=== PATIENT | male | born 1995 | race Caucasian/White ===

== ENCOUNTER 2016-11-22 04:31 | Emergency (ER) | payer BC ==
[2016-11-22] MEDS ORDERED: IV VANCOMYCIN PER PHARMACY 1 EACH MISC MISCELLANE PRN (05:14)
--- NOTE | 2016-11-22 05:26 | ED ---
Skin/Abscess/FB HPI - General Chief complaint: Skin/Abscess/Foreign Body Stated complaint: arm abcess-left Time Seen by Provider: 11/22/16 04:43 Source: patient Mode of arrival: ambulatory Limitations: no limitations - History of Present Illness Initial comments: This patient is a 21-year-old man who presents to be evaluated for an abscess at the left antecubital fossa. The patient states that he had noticed redness and swelling developing over the both course a week. Starting about 2 days ago he had some pus draining from it. He states that he got a large amount of pus out of it the first day. He did drain a small amount of pus yesterday. He states he was not able to express any pus today. The patient did have a tattoo to the left forearm about nearly 2 weeks ago. MD complaint: abscess/boil Onset/Timin -: week(s) Tetanus Up to Date: yes Location: LUE Severity: moderate Quality: aching Consistency: constant Improves with: none Worsens with: palpation Associated symptoms: denies other symptoms Treatments Prior to Arrival: none - Related Data Previous Rx's Medication Instructions Recorded Sulfamethox-Tmp 800-160Mg [Bactrim 2 each PO Q12HR #28 tab 11/22/16 Ds] Allergies Allergy/AdvReac Type Severity Reaction Status Date / Time amoxicillin Allergy Rash/Hives Verified 11/22/16 04:38 Review of Systems ROS Statement: Those systems with pertinent positive or pertinent negative responses have been documented in the HPI. ROS Other: All systems not noted in ROS Statement are negative. Constitutional: Denies: fever, chills Respiratory: Denies: cough, dyspnea Cardiovascular: Denies: chest pain, palpitations Skin: Reports: as per HPI, lesions Neurological: Denies: weakness, numbness Past Medical History Past Medical History: No Reported History History of Any Multi-Drug Resistant Organisms: None Reported Past Surgical History: No Surgical Hx Reported Past Psychological History: Depression Smoking Status: Current every day smoker Past Alcohol Use History: None Reported Past Drug Use History: None Reported General Exam Limitations: no limitations General appearance: alert, in no apparent distress Head exam: Present: atraumatic, normocephalic Respiratory exam: Present: normal lung sounds bilaterally. Absent: respiratory distress, wheezes, rales, rhonchi, stridor Cardiovascular Exam: Present: regular rate, normal rhythm, normal heart sounds. Absent: systolic murmur, diastolic murmur, rubs, gallop Extremities exam: Present: other (There is an approximately 3 cm area of erythema, tenderness, swelling to the left antecubital fossa, consistent with abscess. There is a small eschar centrally located) Neurological exam: Absent: motor sensory deficit Skin exam: Present: warm, dry, normal color Course Vital Signs 11/22/16 11/22/16 04:37 05:38 Temperature 97.8 F 98 F Pulse Rate 70 72 Respiratory 18 18 Rate Blood Pressure 138/64 133/75 O2 Sat by Pulse 99 97 Oximetry Procedures - Incision & Drainage Consent Obtained: verbal consent Site: upper extremity Anesthetic Used: lidocaine 1% I&D Cleaning Method: Betadine Sterile Field Used?: Yes Scalpel Used: #11 I&D Drainage Obtained: Pus Packing: Iodoform Patient Tolerated Procedure: well, no complications Medical Decision Making - Medical Decision Making Patient is 21-year-old man with abscess to the left antecubital fossa after he had received a tattoo. The patient appears to have drained most of the pus at home over the past 2 days. I was able to obtain only 1-2 and also pus draining I&D. I did place a small amount of gauze. Patient tolerated this procedure well, see the note. Patient received antibiotics and will continue course of antibiotics. Discussed appropriate further care and follow-up as well as return parameters. - Lab Data Result diagrams: 11/22/16 05:35 11/22/16 05:35 Lab Results 11/22/16 11/22/16 Range/Units 05:35 05:35 WBC 8.3 (3.8-10.6) k/uL RBC 5.00 (4.30-5.90) m/uL Hgb 15.5 (13.0-17.5) gm/dL Hct 44.6 (39.0-53.0) % MCV 89.1 (80.0-100.0) fL MCH 31.1 (25.0-35.0) pg MCHC 34.9 (31.0-37.0) g/dL RDW 12.1 (11.5-15.5) % Plt Count 223 (150-450) k/uL Neutrophils % 56 % Lymphocytes % 26 % Monocytes % 8 % Eosinophils % 7 % Basophils % 1 % Neutrophils # 4.6 (1.3-7.7) k/uL Lymphocytes # 2.2 (1.0-4.8) k/uL Monocytes # 0.6 (0-1.0) k/uL Eosinophils # 0.6 (0-0.7) k/uL Basophils # 0.1 (0-0.2) k/uL Sodium 145 (137-145) mmol/L Potassium 3.5 (3.5-5.1) mmol/L Chloride 107 (98-107) mmol/L Carbon Dioxide 27 (22-30) mmol/L Anion Gap 11 mmol/L BUN 16 (9-20) mg/dL Creatinine 0.90 (0.66-1.25) mg/dL Est GFR (MDRD) Af Amer >60 (>60 ml/min/1.73 sqM) Est GFR (MDRD) Non-Af >60 (>60 ml/min/1.73 sqM) Glucose 91 (74-99) mg/dL Calcium 9.7 (8.4-10.2) mg/dL Disposition Clinical Impression: Abscess Disposition: HOME SELF-CARE Condition: Fair Instructions: Abscess Incision and Drainage (ED) Prescriptions: Sulfamethox-Tmp 800-160Mg [Bactrim Ds] 2 each PO Q12HR #28 tab Referrals: None,Stated [Primary Care Provider] - 1-2 days Alexandra Obregon DO [Doctor of Osteopathic Medicine] - 1-2 days
[2016-11-22] MEDS ORDERED: VANCOMYCIN 1,250 MG in SODIUM CHLORIDE 0.9% 250 ML IVPB ONE (05:30)
[2016-11-22 05:45] LABS: Basophils # (A) 0.1 k/uL (0-0.2); Basophils % (A) 1 %; CH 30.2; Eosinophils # (A) 0.6 k/uL (0-0.7); Eosinophils % (A) 7 %; HCT 44.6 % (39.0-53.0); HDW 2.37; HGB 15.5 gm/dL (13.0-17.5); Luc # (Auto) 0.22; Luc % (Auto) 3; Lymphocytes # (A) 2.2 k/uL (1.0-4.8); Lymphocytes % (A) 26 %; MCH 31.1 pg (25.0-35.0); MCHC 34.9 g/dL (31.0-37.0); MCV 89.1 fL (80.0-100.0); Monocytes # (A) 0.6 k/uL (0-1.0); Monocytes % (A) 8 %; Neutrophils # (A) 4.6 k/uL (1.3-7.7); Neutrophils % (A) 56 %; RDW 12.1 % (11.5-15.5); WBC 8.3 k/uL (3.8-10.6); WBC (Perox) 8.68
[2016-11-22 05:54] LABS: Anion Gap 11 mmol/L; Blood Urea Nitrogen 16 mg/dL (9-20); Calcium 9.7 mg/dL (8.4-10.2); Carbon Dioxide 27 mmol/L (22-30); Chloride 107 mmol/L (98-107); Glucose 91 mg/dL (74-99); Non-African American GFR(MDRD) >60 (>60 ml/min/1.73 sqM); Potassium 3.5 mmol/L (3.5-5.1); Sodium 145 mmol/L (137-145)
[2016-11-22] MEDS ORDERED: DIPH,PERTUS(ACELL)TETVAC-LF 0.5 ML VIAL IM ONE (06:17)
[2016-11-22 08:15] VITALS: BP 136/61; PULSE 78; RESP 16; TEMP 98.3
[2016-11-22] MEDS ORDERED: VANCOMYCIN 1,250 MG in SODIUM CHLORIDE 0.9% 250 ML IVPB SCH (16:00)
== END 2016-11-22 08:19 | disposition home or self-care (01) ==
LOC: EC 04:31
DX: L02.414 Cutaneous abscess of left upper limb (principal); Z23 Encounter for immunization; F17.200 Nicotine dependence, unspecified, uncomplicated; Z88.0 Allergy status to penicillin
CPT/HCPCS: 99283; 10060; 96365; 96366 ×2; 90471; 36415; 80048; 85025; 90715; J3370

== ENCOUNTER 2019-05-31 18:09 | Emergency (ER) | payer BC ==
[2019-05-31 18:13] VITALS: BP 104/65; PULSE 84; RESP 16; TEMP 98.2
--- NOTE | 2019-05-31 18:31 | ED ---
General Adult HPI - General Chief complaint: Skin/Abscess/Foreign Body Stated complaint: facial abscess Time Seen by Provider: 05/31/19 18:17 Source: patient, RN notes reviewed Mode of arrival: ambulatory Limitations: no limitations - History of Present Illness Initial comments: 23-year-old male without any significant past medical history presents to the emergency department for abscess. Patient states a few days ago he had a pimple on his left lower face by his chin. States that it started to get worse. States that he tried to pop this yesterday but was unsuccessful. States is now causing him pain in his lip. Denies fevers or chills. Denies any history of MRSA that he is aware of. Denies any swelling inside of the mouth. Denies any tooth pain. Denies swelling below the tongue. Patient has no other complaints at this time including shortness of breath, chest pain, abdominal pain, nausea or vomiting, headache, or visual changes. - Related Data Previous Rx's Medication Instructions Recorded Sulfamethox-Tmp 800-160Mg [Bactrim 2 each PO Q12HR #28 tab 11/22/16 Ds] Cephalexin [Keflex] 500 mg PO QID #40 cap 05/31/19 Sulfamethox-Tmp 800-160Mg [Bactrim 1 tab PO Q12HR #20 tab 05/31/19 DS 800-160 mg] Allergies Allergy/AdvReac Type Severity Reaction Status Date / Time amoxicillin Allergy Rash/Hives Verified 05/31/19 18:14 Review of Systems ROS Statement: Those systems with pertinent positive or pertinent negative responses have been documented in the HPI. ROS Other: All systems not noted in ROS Statement are negative. Past Medical History Past Medical History: No Reported History History of Any Multi-Drug Resistant Organisms: None Reported Past Surgical History: No Surgical Hx Reported Past Psychological History: Depression Smoking Status: Current every day smoker Past Alcohol Use History: None Reported Past Drug Use History: None Reported General Exam Limitations: no limitations General appearance: alert, in no apparent distress Head exam: Present: atraumatic, normocephalic, normal inspection Eye exam: Present: normal appearance, PERRL, EOMI. Absent: scleral icterus, conjunctival injection, periorbital swelling ENT exam: Present: normal exam, normal oropharynx (no dental abscess noted), mucous membranes moist, TM's normal bilaterally, normal external ear exam, other (There is a 1.5 cm x 1.5 cm abscess noted in the left lower face by patient's chin. This is indurated and mildly erythematous. No drainage noted.) Neck exam: Present: normal inspection, full ROM. Absent: tenderness, meningismus, lymphadenopathy Respiratory exam: Present: normal lung sounds bilaterally. Absent: respiratory distress, wheezes, rales, rhonchi, stridor Cardiovascular Exam: Present: regular rate, normal rhythm, normal heart sounds. Absent: systolic murmur, diastolic murmur, rubs, gallop, clicks Neurological exam: Present: alert Psychiatric exam: Present: normal affect, normal mood Course Vital Signs 05/31/19 18:11 Temperature 98.2 F Pulse Rate 84 Respiratory 16 Rate Blood Pressure 104/65 O2 Sat by Pulse 97 Oximetry Medical Decision Making - Medical Decision Making Abscess is about 1.5 x 1.5 cm left lower lip. This is indurated with mild erythema. I did attempt to incise and drain abscess using an 18-gauge needle however no purulent material expelled. Patient will be treated with Keflex and Bactrim. Patient has amoxicillin ALLERGY of rash however no angioedema symptoms. Unlikely to cross-react. I discussed using warm compresses and antibiotics. I discussed strict return parameters and to come back immediately if symptoms are worsening instead of improving improving. Also recommend he follow up with primary care tomorrow to they can monitor the abscess as well. Disposition Clinical Impression: Abscess Disposition: HOME SELF-CARE Condition: Good Instructions (If sedation given, give patient instructions): Abscess (ED), Warm Compress or Soak (ED) Additional Instructions: Please use warm compresses. Take antibiotic as directed. Follow up with primary care in 1-2 days for recheck. If symptoms are not improving within 48 hours or you or having worsening symptoms return to the emergency department. Prescriptions: Sulfamethox-Tmp 800-160Mg [Bactrim DS 800-160 mg] 1 tab PO Q12HR #20 tab Cephalexin [Keflex] 500 mg PO QID #40 cap Is patient prescribed a controlled substance at d/c from ED?: No Referrals: Nicole Ruiz MD [Primary Care Provider] - 1-2 days Time of Disposition: 18:29
[2019-05-31] MEDS ORDERED: SULFAMETH-TMP DS STARTER PACK 2 TAB BTL PO STA (18:35)
[2019-05-31] MEDS ORDERED: CEPHALEXIN 500MG STARTER PACK 4 CAP BTL PO STA (18:35)
== END 2019-05-31 18:39 | disposition home or self-care (01) ==
LOC: EC 18:09
DX: K13.0 Diseases of lips (principal); L53.9 Erythematous condition, unspecified; F17.200 Nicotine dependence, unspecified, uncomplicated; Z88.0 Allergy status to penicillin
CPT/HCPCS: 10060; 99283